=== PATIENT | male | born 1965 | race Two or more races ===

== ENCOUNTER 2024-11-02 20:57 | Emergency (ER) | payer OTHER ==
[~2024-11-02] VITALS: Ht 175.3 cm; Wt 70.3 kg
[2024-11-02 21:32] VITALS: BP 111/65; O2SAT 100
[2024-11-02] MEDS ORDERED: KETOROLAC TROMETHAMINE 60 MG VIAL IM ONE (21:45)
[2024-11-02] MEDS ORDERED: 0.9 % SODIUM CHLORIDE 1,000 ML IV ONE (21:45)
[2024-11-02] MEDS ORDERED: PIPERACILLIN/TAZOBACTAM SODIUM 3.375 GM VIAL IV ONE (21:45)
[2024-11-02] MEDS ORDERED: FAMOtidine 10 MG/ML (4ML VIAL) IV ONE (21:45)
[2024-11-02] MEDS ORDERED: ONDANSETRON HCL 2 MG/ML VIAL IV ONE (21:45)
[2024-11-02 23:15] LABS: HEMATOCRIT 34.5 % (39.0-48.0); HEMOGLOBIN 12.2 g/dL (13-16.00); MEAN CELL VOLUME 108.1 fL (80.0-100.00); MEAN CORPUSCULAR HEMOGLOBIN 38.2 pg (27.00-32.0); MEAN CORPUSCULAR HGB CONC 35.3 g/dl (32.0-36.0)
[2024-11-02 23:18] LABS: PLATELET COUNT 85 K/uL (150-450)
[2024-11-02 23:25] LABS: INR 1.21; PARTIAL THROMBOPLASTIN TIME 27.7 SECONDS (22.0-34.0)
[2024-11-02 23:31] LABS: ALBUMIN 2.7 gm/dL (3.4-5.0); CALCIUM 9.3 mg/dL (8.5-10.1); CREATININE SERUM 0.96 mg/dL (0.70-1.30); GFR 80.45; GLOBULINA 4.7 G/DL (2.4-3.5); POTASSIUM 3.72 mEq/L (3.5-5.1); TOTAL PROTEIN 7.4 gm/dL (6.4-8.2)
[2024-11-03] MEDS ORDERED: PEPCID AC20 MG PO (00:35)
[2024-11-03] MEDS ORDERED: ZOFRAN8 MG PO (00:35)
== END 2024-11-03 00:46 | disposition home or self-care (01) ==
LOC: ER 20:59
PROVIDERS: General Practice
DX: R10.11 Right upper quadrant pain (principal); A90 Dengue fever [classical dengue]; R16.0 Hepatomegaly, not elsewhere classified; R18.8 Other ascites

== ENCOUNTER 2024-11-04 20:11 | Emergency (ER) | payer OTHER ==
[~2024-11-04] VITALS: Ht 162.6 cm; Wt 72.6 kg
[~2024-11-04 20:11] MED LIST: PEPCID AC20 MG PO; ZOFRAN8 MG PO
[2024-11-04] MEDS ORDERED: 0.9 % SODIUM CHLORIDE 1,000 ML IV ONE (21:15)
[2024-11-04] MEDS ORDERED: ONDANSETRON HCL 2 MG/ML VIAL IV ONE (21:15)
[2024-11-04] MEDS ORDERED: FAMOtidine 10 MG/ML (4ML VIAL) IV ONE (21:15)
[2024-11-04] MEDS ORDERED: MORPHINE SULFATE 4 MG/ML VIAL IV ONE (21:15)
[2024-11-04 21:41] LABS: HEMATOCRIT 36.7 % (39.0-48.0); MEAN CORPUSCULAR HEMOGLOBIN 38.2 pg (27.00-32.0); MEAN CORPUSCULAR HGB CONC 35.3 g/dl (32.0-36.0); RED CELL DISTRIBUTION WIDTH 13.6 % (11.5-14.5)
[2024-11-04 21:42] LABS: PLATELET COUNT 94 K/uL (150-450)
[2024-11-04] MEDS ORDERED: KETOROLAC TROMETHAMINE 60 MG VIAL IM ONE (22:00)
[2024-11-04 22:04] LABS: ALBUMIN 2.9 gm/dL (3.4-5.0); BILIRUBIN TOTAL 2.16 mg/dL (0.3-1.2); BILIRUBIN,CONJUGATED 0.68 mg/dL (0.0-0.2); BILIRUBIN,UNCONJUGATED 1.48 mg/dL (0.0-0.6); CALCIUM 9.6 mg/dL (8.5-10.1); CREATININE SERUM 1.16 mg/dL (0.70-1.30); GFR 64.66; GLOBULINA 5.2 G/DL (2.4-3.5); POTASSIUM 3.57 mEq/L (3.5-5.1); TOTAL PROTEIN 8.1 gm/dL (6.4-8.2)
[2024-11-05 00:53] LABS: PH,URINE 6.5 (5.0-8.0); URINE APPEARANCE Clear; URINE BILIRRUBIN Negative (NEGATIVE); URINE BLOOD Negative; URINE COLOR Yellow; URINE GLUCOSE Negative (NEGATIVE); URINE KETONE Trace (NEGATIVE); URINE LEUKOCYTE Negative; URINE NITRATE Negative; URINE PROTEIN Trace (NEGATIVE); URINE UROBILINOGEN 0.2 E.U./dl
[2024-11-05 00:57] LABS: URINE RBC 8.2 uL (0.0-20.8); URINE WBC 6.4 uL (0.0-23.2)
[2024-11-05 01:11] LABS: URINE BACTERIA 1.6 uL (0.0-1933)
[2024-11-05 02:52] LABS: COCAINE NEGATIVE (NEGATIVE); METHADONE NEGATIVE (NEGATIVE); OPIATES POSITIVE (NEGATIVE); THC ( Cannabinoids) NEGATIVE (NEGATIVE)
[2024-11-06] MEDS ORDERED: TORADOL60 MG IM (11:40)
== END 2024-11-05 05:07 | disposition home or self-care (01) ==
LOC: ER 20:14
PROVIDERS: General Practice
DX: M54.17 Radiculopathy, lumbosacral region (principal); R10.11 Right upper quadrant pain; R11.10 Vomiting, unspecified; K80.20 Calculus of gallbladder without cholecystitis without obstruction; R18.8 Other ascites; K74.69 Other cirrhosis of liver
CPT/HCPCS: 36415; 71045; 74177; 96365; 96372; 99284; J1885; J2270; J2405; J3490; J7030; Q9965

== ENCOUNTER 2024-11-06 11:25 | Inpatient (IN) | payer OTHER ==
[~2024-11-06] VITALS: Ht 162.6 cm; Wt 159.7 kg
[2024-11-06] MEDS ORDERED: TORADOL60 MG IM (11:40)
--- NOTE | 2024-11-06 11:42 | NUR ---
SE RECIBE PACIENTE ALERTA Y ORIENTADO X3 EL CUAL REFIERE VENIR POR DOLOR EN AREA SUPERIOR DEL ABDOMEN QUE SE PRESENTO HOY EN LA MANANA. SE MIDEN S/V Y SE UBICA.
[2024-11-06] MEDS ORDERED: RINGERS SOLUTION,LACTATED 1,000 ML IV STA (12:42)
[2024-11-06] MEDS ORDERED: PROMETHAZINE HCL 50 MG/ML AMPUL IM STA (12:44)
[2024-11-06] MEDS ORDERED: MEPERIDINE HCL 25 MG/ML AMPUL IM STA (12:44)
--- NOTE | 2024-11-06 13:24 | NUR ---
SE ORIENTA A PACIENTE SOBRE TX MEDICO, REFIERE ENTENDER. SE REALIZAN MUESTRAS DE LABORATORIO BAJO MEDIDAS ASEPTICAS. SE ADMINISTRAN MEDICAMENTOS BOUBACAR ORDEN MEDICA. PENDIENTE RE-EVALUACION MEDICA.
[2024-11-06 14:21] LABS: HEMOGLOBIN 12.2 g/dL (13-16.00); MEAN CELL VOLUME 108.6 fL (80.0-100.00); MEAN CORPUSCULAR HEMOGLOBIN 37.7 pg (27.00-32.0); MEAN CORPUSCULAR HGB CONC 34.7 g/dl (32.0-36.0); RED BLOOD COUNT 3.23 M/uL (4.00-6.00)
[2024-11-06 14:29] LABS: PLATELET COUNT 84 K/uL (150-450)
[2024-11-06 15:42] LABS: ALBUMIN 2.4 gm/dL (3.4-5.0); BILIRUBIN TOTAL 1.57 mg/dL (0.3-1.2); BILIRUBIN,CONJUGATED 0.58 mg/dL (0.0-0.2); BILIRUBIN,UNCONJUGATED 0.99 mg/dL (0.0-0.6); CALCIUM 8.7 mg/dL (8.5-10.1); CREATININE SERUM 0.97 mg/dL (0.70-1.30); GFR 79.49; POTASSIUM 3.63 mEq/L (3.5-5.1); TOTAL PROTEIN 6.8 gm/dL (6.4-8.2)
[2024-11-06] MEDS ORDERED: MEPERIDINE HCL/PF 50 MG/ML VIAL IM ONE ×2 (16:15→19:15)
[2024-11-06] MEDS ORDERED: ONDANSETRON HCL 4 MG in 0.9 % SODIUM CHLORIDE 50 ML IV PRN (19:15)
[2024-11-06] MEDS ORDERED: PANTOPRAZOLE SODIUM 40 MG/VIAL VIAL IV SCH (19:15)
[2024-11-06] MEDS ORDERED: DIPHENHYDRAMINE HCL 50 MG/ML VIAL 1ML IV ONE (19:15)
[2024-11-06] MEDS ORDERED: 0.9 % SODIUM CHLORIDE 1,000 ML IV SCH (19:15)
[2024-11-06] MEDS ORDERED: MEPERIDINE HCL/PF 25 MG/ML VIAL IM PRN (19:15)
[2024-11-06] MEDS ORDERED: ACETAMINOPHEN 500 MG GEL..CAP PO PRN (19:15)
[2024-11-06] MEDS ORDERED: METHYLPREDNISOLONE SOD SUCC 125 MG VIAL IV ONE (19:15)
[2024-11-06] MEDS ORDERED: PIPERACILLIN/TAZOBACTAM SODIUM 3.375 GM in DEXTROSE 5 % IN WATER 100 ML IV SCH (19:17)
[2024-11-06 20:23] LABS: INR 1.28; PARTIAL THROMBOPLASTIN TIME 29.1 SECONDS (22.0-34.0); PROTHROMBIN TIME 13.7 SECONDS (9.0-11.5)
[2024-11-07 04:11] VITALS: BP 115/70; O2SAT 97
[2024-11-07 04:50] LABS: PH,URINE 5.5 (5.0-8.0); URINE APPEARANCE Clear; URINE BILIRRUBIN Negative (NEGATIVE); URINE BLOOD Negative; URINE COLOR Yellow; URINE GLUCOSE Negative (NEGATIVE); URINE KETONE Trace (NEGATIVE); URINE LEUKOCYTE Negative; URINE NITRATE Negative; URINE PROTEIN 30 (NEGATIVE)
[2024-11-07 04:54] LABS: URINE BACTERIA 10.4 uL (0.0-1933); URINE EPITHELIAL CELLS 4.4 uL (0.0-38.8); URINE WBC 3.4 uL (0.0-23.2)
[2024-11-07 07:58] LABS: INR 1.31; PARTIAL THROMBOPLASTIN TIME 30.2 SECONDS (22.0-34.0)
[2024-11-07 09:08] VITALS: BP 104/61; O2SAT 98
[2024-11-07] MEDS ORDERED: 0.9 % SODIUM CHLORIDE 1,000 ML IV SCH (11:45)
[2024-11-07 17:57] VITALS: BP 102/65; O2SAT 99
[2024-11-08 01:23] VITALS: BP 93/48; O2SAT 95
[2024-11-08 08:20] VITALS: BP 100/55; O2SAT 97
[2024-11-08 11:15] LABS: HEMOGLOBIN 11.2 g/dL (13-16.00); MEAN CELL VOLUME 109.7 fL (80.0-100.00); MEAN CORPUSCULAR HEMOGLOBIN 38.4 pg (27.00-32.0); RED BLOOD COUNT 2.91 M/uL (4.00-6.00); RED CELL DISTRIBUTION WIDTH 14.1 % (11.5-14.5)
[2024-11-08 11:16] LABS: PLATELET COUNT 79 K/uL (150-450)
[2024-11-08 12:32] LABS: ALBUMIN 2.2 gm/dL (3.4-5.0); BILIRUBIN TOTAL 1.55 mg/dL (0.3-1.2); CALCIUM 8.3 mg/dL (8.5-10.1); CREATININE SERUM 1.19 mg/dL (0.70-1.30); GFR 62.79; GLOBULINA 3.9 G/DL (2.4-3.5); POTASSIUM 4.32 mEq/L (3.5-5.1); TOTAL PROTEIN 6.1 gm/dL (6.4-8.2)
[2024-11-08 18:01] VITALS: BP 117/78
[2024-11-08] MEDS ORDERED: MIDAZOLAM HCL 2 MG/2 ML VIAL IV PUSH ONE (18:15)
[2024-11-08] MEDS ORDERED: fentaNYL CITRATE 50 MCG/ML AMPUL IV PUSH ONE (18:15)
[2024-11-08] MEDS ORDERED: MEPERIDINE HCL/PF 25 MG/ML VIAL IM PRN (21:30)
[2024-11-09 02:17] VITALS: BP 94/58; O2SAT 96
[2024-11-09 08:52] VITALS: BP 99/64; O2SAT 90
[2024-11-09 20:07] VITALS: BP 140/80; O2SAT 100
[2024-11-10 02:55] VITALS: BP 101/66; O2SAT 98
[2024-11-10 09:09] VITALS: BP 96/59; O2SAT 96
== END 2024-11-10 17:12 | disposition home or self-care (01) | DRG 445 ==
LOC: ER 11:27 → MEDJ 19:56
PROVIDERS: General Practice; ADMIT Internal Medicine; ATTEND Internal Medicine
PROC: BW21Y0Z Computerized Tomography (CT Scan) of Abdomen and Pelvis using Other Contrast, Unenhanced and Enhanced (ICD-10-PCS; 2024-11-06)
PROC: 0F903ZX Drainage of Liver, Percutaneous Approach, Diagnostic (ICD-10-PCS; principal; 2024-11-08)
DX: K80.20 Calculus of gallbladder without cholecystitis without obstruction (principal); C22.9 Malignant neoplasm of liver, not specified as primary or secondary; K75.9 Inflammatory liver disease, unspecified